=== PATIENT | male | born 1975 | race Caucasian/White ===

== ENCOUNTER 2017-11-24 03:24 | Emergency (ER) | payer MEDICAID ==
[2017-11-24] MEDS ORDERED: NS 1,000 ML IV ONE ×2 (03:34→04:34)
--- NOTE | 2017-11-24 03:50 | EDPHY ---
H & P Stated Complaint: HIGH BLOOD SUGAR Time Seen by Provider: 11/24/17 03:30 HPI/ROS: HPI The patient presents with hyperglycemia with glucometer reading "high" just prior to arrival at the gas station. 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 He said during the course of the day yesterday he was not feeling very well with body aches, dry mouth, feeling mentally foggy. He believes these are signs that his blood sugar is high. He says he has been using his Levemir 16 units twice daily and has not missed doses. He cannot recall what his blood glucose is were most recently. He has not had any nausea, vomiting, chest pain, diarrhea, fever, cough. He has a history of DKA. He usually gets care at [facility] and [facility]. 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 REVIEW OF SYSTEMS 10 systems were reviewed and negative with the exception of the elements mentioned in the history of present illness. 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, recently incarcerated, while in long term was on Levemir 40 units twice a day PHYSICAL General Appearance: Alert, no distress Eyes: Pupils equal and round no pallor or injection ENT, Mouth: Mucous membranes moist Respiratory: There are no retractions, lungs are clear to auscultation Cardiovascular: Regular rate and rhythm Gastrointestinal: Abdomen is soft and non-tender, no masses, bowel sounds normal Neurological: A&O, moves all extremities Skin: Warm and dry, no rashes Musculoskeletal: Neck is supple non tender Extremities: symmetrical, full range of motion Psychiatric: Patient is oriented X 3, there is no agitation Source: Patient, EMS Exam Limitations: No limitations - Personal History Current Tetanus/Diphtheria Vaccine: Yes Current Tetanus Diphtheria and Acellular Pertussis (TDAP): Yes - Medical/Surgical History Hx Asthma: No Hx Chronic Respiratory Disease: No Hx Diabetes: Yes Hx Cardiac Disease: No Hx Renal Disease: No Hx Cirrhosis: No Hx Alcoholism: No Hx HIV/AIDS: No Hx Splenectomy or Spleen Trauma: No Other PMH: TYPE 1 DM,. HTN - Social History Smoking Status: Never smoked Constitutional: Initial Vital Signs Temperature (C) 37.9 C 11/24/17 03:29 Heart Rate 82 11/24/17 03:29 Respiratory Rate 16 11/24/17 03:29 Blood Pressure 133/96 H 11/24/17 03:29 O2 Sat (%) 96 11/24/17 03:29 O2 Delivery Mode Room Air Allergies/Adverse Reactions: No Known Allergies Allergy (Unverified 11/24/17 03:32) Home Medications: Medication Instructions Recorded Gabapentin 11/24/17 Levemir 16 unit BID 11/24/17 Lisinopril 11/24/17 Naproxen 11/24/17 Medical Decision Making Differential Diagnosis: 42-year-old male with type 1 diabetes on insulin presents with elevated blood glucose today while at the gas station just prior to arrival in association with mental fogginess, body aches, dry mouth. In the emergency department, initial glucose was greater than 600. IV line was established and patient was given 2 L of normal saline. Remainder of labs returned demonstrate no anion gap were sign of significant ketones. As he was given insulin 10 units regular I V. Repeat blood glucose was in the 200s and patient felt much better. I suspect his symptoms are due to poor control of his diabetes. As I do not see any signs of other systemic infection or UT. He will be discharged from the emergency department. Differential diagnosis includes DKA, hyperosmolar hyper ketotic state, poorly controlled type 1 diabetes. - Data Points Laboratory Results: Laboratory Results 11/24/17 04:15 11/24/17 04:15 Medications Given: Discontinued Medications Sodium Chloride (Ns) 1,000 mls @ 1,000 mls/hr IV EDNOW ONE PRN Reason: Protocol Stop: 11/24/17 04:33 Last Admin: 11/24/17 04:19 Dose: 1,000 mls Sodium Chloride (Ns) 1,000 mls @ 1,000 mls/hr IV EDNOW ONE PRN Reason: Protocol Stop: 11/24/17 05:33 Last Admin: 11/24/17 04:20 Dose: 1,000 mls Insulin Human Regular (Humulin R) 10 unit IVP EDNOW ONE Stop: 11/24/17 05:06 Last Admin: 11/24/17 05:14 Dose: 10 units Point of Care Test Results: Chemistry 11/24/17 11/24/17 11/24/17 05:21 04:13 03:32 POC Sodium 136 mEq/L mEq/L (135-145) POC Potassium 4.3 mEq/L mEq/L (3.3-5.0) POC Chloride 103 mEq/L mEq/L (97-110) POC BUN 15 mg/dL mg/dL (7-23) POC Creatinine 0.7 mg/dL mg/dL (0.7-1.3) POC Glucose 262 mg/dL H mg/dL 596 mg/dL H* mg/dL > 600 mg/dL H* mg/dL (70-100) (70-100) (70-100) ISTAT H&H 11/24/17 04:13 POC Hgb 15.3 gm/dL gm/dL (13.7-17.5) POC Hct 45 % % (40-51) Departure - Departure Disposition: Home, Routine, Self-Care Clinical Impression: Hyperglycemia due to type 1 diabetes mellitus Condition: Good Instructions: Diabetic Hyperglycemia (ED) Referrals: [facility],. [Clinic] - As per Instructions
[2017-11-24 04:25] LABS: PLATELET COUNT 263 10^3/uL (150-400)
[2017-11-24 04:35] VITALS: BP 136/78
[2017-11-24] MEDS ORDERED: INSULIN REGULAR HUMAN 100 UNIT/ML UNIT IVP ONE (05:05)
== END 2017-11-24 05:52 | disposition home or self-care (01) ==
DX: E10.65 Type 1 diabetes mellitus with hyperglycemia (principal); I10 Essential (primary) hypertension; E86.9 Volume depletion, unspecified
CPT/HCPCS: 82435-PO; 82565-PO; 82947-PO; 84132-PO; 84295-PO; 84520-PO; 85014-PO; 96374; J1815